=== PATIENT | male | born 2005 | race Caucasian/White ===

== ENCOUNTER 2024-03-21 13:52 | Emergency (ER) | payer OTHER, SELFPAY ==
[2024-03-21] MEDS ORDERED: FAMOTIDINE 20 MG/2 ML VIAL IV ONE (15:49)
[2024-03-21] MEDS ORDERED: ONDANSETRON 4 MG/2 ML VIAL ONE (15:49)
[2024-03-21] MEDS ORDERED: NA CHLORIDE 0.9% 1,000 ML ONE (15:49)
[2024-03-21] MEDS ORDERED: KETOROLAC 30 MG/ML INJ ONE (15:49)
[2024-03-21 16:36] LABS: Absolute Lymphocytes (CBC) 0.4 K/uL (0.7-4.9); Absolute Neutrophil 11.5 K/uL (1.8-8.0); Basophils % 0.1 % (0-1.3); Eosinophils % 0.1 % (0-4.4); Hematocrit 45.1 % (39.6-49.0); Lymphocytes % 3.2 % (15.3-44.8); MCH 29.5 pg (27.0-35.0); MCHC 33.2 g/dL (32.0-36.0); MCV 88.9 fL (80-100); MPV 9.1 fL (7.6-11.3); Monocytes % 8.1 % (3.3-12.3); Neutrophils % 88.5 % (41.7-73.7); Nucleated Red Blood Cells % 0.1 % (0-0); Platelets 238 thou/uL (152-406); RBC Red Blood Cell Count 5.07 M/uL (4.33-5.43); Red Cell Distribution Width 12.6 % (12.1-15.2)
[2024-03-21 16:40] LABS: Specific Gravity > 1.030 (1.005-1.030); Sqamous Epithelial None Seen /HPF (None Seen); Urine Bacteria None Seen /HPF (<20); Urine Bilirubin NEGATIVE (Negative); Urine Blood Trace (Negative); Urine Clarity Clear (Clear); Urine Color Yellow (Yellow); Urine Culture Reflex Order NOT NEEDED; Urine Glucose NEGATIVE (Negative); Urine Ketones NEGATIVE (Negative); Urine Microscopic Reflex YN ORDER UMIC; Urine Mucus Slight /HPF (None Seen); Urine Nitrite NEGATIVE (Negative); Urine Protein TRACE (Negative); Urine Urobilinogen Normal (Normal); Urine WBC <5 /HPF (<5)
[2024-03-21 16:48] LABS: Albumin 3.7 g/dL (3.4-5.0); Anion Gap 10.6 mEq/L (5.0-15.0); Globulin 3.8 g/dL (2.3-3.5); Potassium 3.6 mEq/L (3.5-5.1); Protein, Total 7.5 g/dL (6.4-8.2)
[2024-03-21 16:53] LABS: SARS-CoV-2 Antigen CONTROL BLUE LINE VIS/BG OK; SARS-CoV-2 Antigen Rapid Res Negative (Negative)
[2024-03-21 17:46] LABS: Platelet Estimate ADEQ; White Blood Cell Scan OK (OK)
[2024-03-21 17:47] LABS: Blood Morphology Comment NOT SEEN (NOT SEEN)
--- NOTE | 2024-03-21 18:15 | RAD REPORT ---
EXAM DESCRIPTION: CTAbdomen Pelvis W Contrast - 03/21/2024 6:01 pm CLINICAL HISTORY: ABD PAIN COMPARISON: No comparisons TECHNIQUE: CT of the abdomen and pelvis was performed. All CT scans are performed using dose optimization technique as appropriate and may include automated exposure control or mA/KV adjustment according to patient size. FINDINGS: Lower chest: No acute abnormality. Liver: No acute abnormality or suspicious lesions. Biliary: No biliary ductal dilatation. Stomach: No significant focal abnormality. Duodenum: No significant focal abnormality. Pancreas: No significant abnormality. Spleen: No significant abnormality. Adrenal: No suspicious lesions. Kidney/ureter: No hydronephrosis. No renal calculi. Retroperitoneum: No retroperitoneal adenopathy. Vascular: No aneurysm. Bowel: No significant focal abnormality. Normal appendix. Peritoneum: No ascites or free air. Bladder: Grossly unremarkable. Reproductive: No adnexal masses. Bones: No acute fracture. Other: n/a IMPRESSION: No acute intra-abdominal or pelvic finding. Normal appendix.
--- NOTE | 2024-03-21 19:16 | EDPHYS ---
Physician Documentation [facility] Name: Octavio Martinez Age: 18 yrs Sex: Male : 2005 Arrival Date: 03/21/2024 Time: 13:52 Bed DIS2 Private MD: ED Physician Aiden Rodriguez HPI: 03/21 15:45 This 18 yrs old Male presents to ER via Ambulatory with complaints of Fever, cp Nausea/Vomiting/Diarrhea. 15:45 The patient reports fever, that was measured at 100.9 degrees Fahrenheit. Onset: The cp symptoms/episode began/occurred yesterday. Associated signs and symptoms: Pertinent positives: abdominal pain, diarrhea, nausea, vomiting, Pertinent negatives: cough. Severity of symptoms: in the emergency department the symptoms are unchanged despite home interventions. Historical: - Allergies: 14:49 No Known Allergies; hb - Home Meds: 14:49 None [Active]; hb - PMHx: 14:49 None; hb - PSHx: 14:49 None; hb - Immunization history:: Adult Immunizations up to date. - Infectious Disease History:: Denies. - Social history:: Smoking status: Reported history of juuling and/or vaping. ROS: 15:50 Constitutional: Positive for body aches, poor PO intake, Negative for fever, cp 15:50 Eyes: Negative for injury, pain, redness, and discharge, cp 15:50 ENT: Negative for drainage from ear(s), ear pain, sore throat, difficulty swallowing, difficulty handling secretions, 15:50 Respiratory: Negative for cough, shortness of breath, wheezing, 15:50 Abdomen/GI: Positive for abdominal pain, nausea, vomiting, and diarrhea, anorexia, Negative for constipation, dysphagia, hematemesis, black/tarry stool, rectal bleeding, 15:50 Back: Negative for pain at rest, pain with movement, 15:50 Neuro: Negative for altered mental status, dizziness, headache, weakness, 15:50 All other systems are negative, Exam: 15:55 Constitutional: The patient appears in no acute distress, alert, awake, cp non-diaphoretic, non-toxic, well developed, well nourished, uncomfortable, 15:55 Head/Face: Normocephalic, atraumatic. cp 15:55 Eyes: Periorbital structures: appear normal, Conjunctiva: normal, no exudate, no injection, Sclera: no appreciated abnormality, Lids and lashes: appear normal, bilaterally, 15:55 ENT: External ear(s): are unremarkable, Nose: is normal, Mouth: Lips: moist, Oral mucosa: pink and intact, moist, Posterior pharynx: is normal, airway is patent, no erythema, no exudate, 15:55 Neck: ROM/movement: is normal, is supple, without pain, no range of motions limitations, 15:55 Chest/axilla: Inspection: normal, 15:55 Cardiovascular: Rate: normal, Rhythm: regular, 15:55 Respiratory: the patient does not display signs of respiratory distress, Respirations: normal, no use of accessory muscles, no retractions, labored breathing, is not present, Breath sounds: are clear throughout, no decreased breath sounds, no stridor, no wheezing, 15:55 Abdomen/GI: Inspection: abdomen appears normal, Bowel sounds: active, all quadrants, Palpation: soft, in all quadrants, moderate abdominal tenderness, in all quadrants, rebound tenderness, is not appreciated, involuntary guarding, is not appreciated, 15:55 Back: pain, is absent, ROM is normal, 15:55 Neuro: Orientation: to person, place \T\ time. Mentation: is normal, Motor: moves all fours, strength is normal, Vital Signs: 14:47 BP 112 / 69; Pulse 76; Resp 18; Temp 99(O); Pulse Ox 100% on R/A; Weight 108.86 kg; rs5 Height 6 ft. 0 in. ; Pain 3/10; 15:01 BP 114 / 74; Pulse 77; Resp 18; Pulse Ox 99% on R/A; rs5 18:54 BP 115 / 71; Pulse 80; Resp 18; Temp 98(O); Pulse Ox 99% on R/A; rs5 14:47 Body Mass Index 32.55 (108.86 kg, 182.88 cm) rs5 14:47 Pain Scale: Adult rs5 MDM: 14:46 Patient medically screened. cp 19:14 Data reviewed: vital signs, nurses notes, lab test result(s), radiologic studies, CT cp scan. 19:14 Differential diagnosis: viral Infection, bacterial infection, bronchitis, pneumonia cp UTI, gastroenteritis. I considered the following discharge prescriptions or medication management in the emergency department Medications were administered in the Emergency Department. See MAR. Counseling: I had a detailed discussion with the patient and/or guardian regarding the historical points, exam findings, and any diagnostic results supporting the discharge/admit diagnosis, lab results, radiology results, to return to the emergency department if symptoms worsen or persist or if there are any questions or concerns that arise at home. Response to treatment: the patient's symptoms have markedly improved after treatment, and as a result, I will discharge patient. Special discussion: Based on the patient's Hx, exam, and Dx evaluation, there is no indication for emergent surgery or inpatient Tx. It is understood by the patient/guardian that if the Sx's persist or worsen they need to return immediately for re-evaluation. 03/21 15:35 Order name: CBC with Diff; Complete Time: 19:05 03/21 17:45 Interpretation: Normal except: WBC 12.90; MONTRELL% 88.5; LYM% 3.2; NEUT A 11.5; LYMA 0.4. 03/21 15:35 Order name: CMP; Complete Time: 17:45 03/21 17:45 Interpretation: Normal except: GLOB 3.8; A/G 1.0. 03/21 15:35 Order name: Lipase; Complete Time: 17:45 03/21 15:35 Order name: Urinalysis w/ reflexes; Complete Time: 17:45 03/21 17:45 Interpretation: Normal except: Urine SG > 1.030; UBLD Trace; UPROT TRACE; URBC 5-10. 03/21 15:35 Order name: SARS RAPID; Complete Time: 17:45 03/21 17:46 Interpretation: Reviewed. 03/21 15:35 Order name: Influenza Screen (a \T\ B); Complete Time: 17:45 03/21 17:46 Interpretation: Reviewed. 03/21 16:43 Order name: CBC Smear Scan; Complete Time: 19:05 EDNE 03/21 17:44 Order name: CT Abd/Pelvis - IV Contrast Only; Complete Time: 19:05 03/21 15:35 Order name: IV Saline Lock; Complete Time: 16:44 03/21 15:35 Order name: Labs collected and sent; Complete Time: 16:44 03/21 19:06 Order name: PO challenge; Complete Time: 19:10 cp Administered Medications: 16:00 Drug: NS 0.9% IV 1000 ml IV at 1 bolus Per protocol; 1000 mL bolus Route: IV; Rate: 1 rs5 bolus; Site: right antecubital; 16:00 Drug: Famotidine IVP 20 mg IVP once; dilute with 10 mL 0.9% NaCl; give over 2 minutes rs5 Route: IVP; Site: right antecubital; 16:00 Drug: TORadol - Ketorolac IVP 15 mg IVP once Route: IVP; Site: right antecubital; rs5 16:00 Drug: Ondansetron IVP 4 mg IVP once; over 2 minutes Route: IVP; Site: right antecubital;rs5 Disposition Summary: 03/21/24 19:15 Discharge Ordered Notes: Location: Home cp Problem: new cp Symptoms: have improved cp Condition: Stable cp Diagnosis - Nausea with vomiting, unspecified cp - Diarrhea, unspecified cp Followup: cp - With: Private Physician - When: 2 - 3 days - Reason: Worsening of condition Discharge Instructions: - Discharge Summary Sheet cp - Food Choices to Help Relieve Diarrhea, Adult cp - Diarrhea, Adult cp - Nausea and Vomiting, Adult cp Forms: - Medication Reconciliation Form cp - Antibiotic Education cp - Prescription Opioid Use cp - Patient Portal Instructions cp - Leadership Thank You Letter cp - Work release form mb9 Prescriptions: - Zofran 4 mg Oral Tablet - take 1 tablet ORAL route every 12 hours As needed; 20 tablet; Refills: 0, cp Product Selection Permitted - dicyclomine 20 mg Oral tablet - take 1 tablet ORAL route 4 times per day; 30 tablet; Refills: 0, Product cp Selection Permitted Signatures: Dispatcher [employer] EDMS Aiden Roland PA PA cp Valentina Allan RN RN Ruslan Avila RN RN rs5 Corrections: (The following items were deleted from the chart) 15:35 15:35 CBC+H.LAB.BRZ ordered. EDMS EDMS 15:35 15:35 COMPREHENSIVE METABOLIC PANEL+C.LAB.BRZ ordered. EDMS EDMS 15:35 15:35 LIPASE+C.LAB.BRZ ordered. EDMS EDMS 15:35 15:35 Urinalysis+U.LAB.BRZ ordered. EDMS EDMS 15:35 15:35 SARS-COV-2 Antigen Rapid+I.LAB.BRZ ordered. EDMS EDMS 15:35 15:35 Influenza Screen (A \T\ B)+BA.LAB.BRZ ordered. EDMS EDMS 17:45 17:45 Abdomen Pelvis W Con+CT.RAD.BRZ ordered. EDMS EDMS
--- NOTE | 2024-03-21 19:16 | ER ---
Nurse's Notes [facility] Name: Octavio Martinez Age: 18 yrs Sex: Male : 2005 Arrival Date: 03/21/2024 Time: 13:52 Bed DIS2 Private MD: Diagnosis: Nausea with vomiting, unspecified;Diarrhea, unspecified Presentation: 03/21 14:47 Chief complaint: N/V/D, fever, and chills since yesterday. Not tolerating fluids. TMAX hb 100.9. Coronavirus screen: At this time, the client does not indicate any symptoms associated with coronavirus-19. Ebola Screen: No symptoms or risks identified at this time. Initial Sepsis Screen: Does the patient meet any 2 criteria? HR > 90 bpm. No. Patient's initial sepsis screen is negative. Does the patient have a suspected source of infection? No. Patient's initial sepsis screen is negative. Risk Assessment: Do you want to hurt yourself or someone else? Patient reports no desire to harm self or others. Onset of symptoms was March 20, 2024. 14:47 Method Of Arrival: Ambulatory hb 14:47 Acuity: KIMBERLY 3 hb Triage Assessment: 14:49 General: Appears in no apparent distress. Behavior is calm, cooperative. Pain: Pain hb currently is 3 out of 10 on a pain scale. Neuro: Level of Consciousness is awake, alert, obeys commands, Oriented to person, place, time, situation. Cardiovascular: Patient's skin is warm and dry. Respiratory: Respiratory effort is even, unlabored, Respiratory pattern is regular, symmetrical. GI: Reports cramping, diarrhea, gaseousness, intolerance of fluids, intolerance of food, nausea, vomiting. Historical: - Allergies: 14:49 No Known Allergies; hb - Home Meds: 14:49 None [Active]; hb - PMHx: 14:49 None; hb - PSHx: 14:49 None; hb - Immunization history:: Adult Immunizations up to date. - Infectious Disease History:: Denies. - Social history:: Smoking status: Reported history of juuling and/or vaping. Screenin:46 [facility] ED Fall Risk Assessment (Adult) History of falling in the last 3 months, rs5 including since admission No falls in past 3 months (0 pts) Confusion or Disorientation No (0 pts) Intoxicated or Sedated No (0 pts) Impaired Gait No (0 pts) Mobility Assist Device Used No (0 pt) Altered Elimination No (0 pt) Score/Fall Risk Level 0 - 2 = Low Risk Oriented to surroundings, Maintained a safe environment. Abuse screen: Denies threats or abuse. Nutritional screening: No deficits noted. Tuberculosis screening: No symptoms or risk factors identified. Assessment: 14:46 General: Appears in no apparent distress. uncomfortable, Behavior is calm, cooperative. rs5 Pain: Complains of pain in abdomen, head Pain currently is 7 out of 10 on a pain scale. Quality of pain is described as aching, Is continuous. Neuro: Level of Consciousness is awake, alert, obeys commands, Oriented to person, place, time, situation. Cardiovascular: Patient's skin is warm and dry. Respiratory: Respiratory effort is even, unlabored, Respiratory pattern is regular, symmetrical. GI: Abdomen is round non-distended, Abd is soft and non tender X 4 quads. Reports nausea, vomiting. : No signs and/or symptoms were reported regarding the genitourinary system. EENT: No signs and/or symptoms were reported regarding the EENT system. Derm: Skin is intact, Skin is pink, warm \T\ dry. Musculoskeletal: Range of motion: intact in all extremities. 15:55 Reassessment: Patient and/or family updated on plan of care and expected duration. Pain rs5 level reassessed. Patient is alert, oriented x 3, equal unlabored respirations, skin warm/dry/pink. Patient states feeling better. 17:10 Reassessment: No changes from previously documented assessment. rs5 18:15 Reassessment: Patient and/or family updated on plan of care and expected duration. Pain rs5 level reassessed. Patient is alert, oriented x 3, equal unlabored respirations, skin warm/dry/pink. Patient states feeling better. 18:54 Reassessment: No changes from previously documented assessment. rs5 Vital Signs: 14:47 BP 112 / 69; Pulse 76; Resp 18; Temp 99(O); Pulse Ox 100% on R/A; Weight 108.86 kg; rs5 Height 6 ft. 0 in. ; Pain 3/10; 15:01 BP 114 / 74; Pulse 77; Resp 18; Pulse Ox 99% on R/A; rs5 18:54 BP 115 / 71; Pulse 80; Resp 18; Temp 98(O); Pulse Ox 99% on R/A; rs5 14:47 Body Mass Index 32.55 (108.86 kg, 182.88 cm) rs5 14:47 Pain Scale: Adult rs5 ED Course: 13:58 Patient arrived in ED. ra3 14:11 Aiden Roland PA is PHCP. cp 14:11 Aiden Rodriguez MD is Attending Physician. cp 14:46 Patient has correct armband on for positive identification. Placed in gown. Bed in low rs5 position. Call light in reach. Side rails up X2. 14:46 No provider procedures requiring assistance completed. rs5 14:49 Triage completed. hb 14:49 Arm band placed on. hb 15:43 Ruslan Avila, MYLENE is Primary Nurse. rs5 18:02 CT Abd/Pelvis - IV Contrast Only In Process Unspecified. EDMS 19:16 IV discontinued, intact, bleeding controlled, No redness/swelling at site. Pressure mb9 dressing applied. Administered Medications: 16:00 Drug: NS 0.9% IV 1000 ml IV at 1 bolus Per protocol; 1000 mL bolus Route: IV; Rate: 1 rs5 bolus; Site: right antecubital; 16:00 Drug: Famotidine IVP 20 mg IVP once; dilute with 10 mL 0.9% NaCl; give over 2 minutes rs5 Route: IVP; Site: right antecubital; 16:00 Drug: TORadol - Ketorolac IVP 15 mg IVP once Route: IVP; Site: right antecubital; rs5 16:00 Drug: Ondansetron IVP 4 mg IVP once; over 2 minutes Route: IVP; Site: right antecubital;rs5 Medication: 18:56 VIS not applicable for this client. rs5 Outcome: 19:15 Discharge ordered by . cp 19:20 Discharged to home ambulatory, mbRio 19:20 Condition: stable 19:20 Discharge instructions given to patient, Instructed on discharge instructions, follow up and referral plans. Demonstrated understanding of instructions, follow-up care, medications, Prescriptions given X 2, 19:23 Patient left the ED. mb9 Signatures: Dispatcher [employer] EDDE Aiden Roland PA PA cp Baxter, Heather, MYLENE RN hb Jany Lau RN RN mb9 Ruslan Avila RN RN rs5 Carleen Sims ra3 Corrections: (The following items were deleted from the chart) 18:55 14:47 BP 112 / 69; Pulse 118bpm; Resp 18bpm; Pulse Ox 100% RA; Temp 99F Oral; 108.86 rs5 kg; Height 6 ft.; BMI: 32.5; Pain 3/10, Adult; hb
[2024-03-21 19:54] VITALS: BP 115/71; TEMP 98; O2SAT 99
== END 2024-03-21 19:23 | disposition home or self-care (01) ==
LOC: ER 13:52
DX: R11.2 Nausea with vomiting, unspecified (principal); R19.7 Diarrhea, unspecified; Z11.52 Encounter for screening for COVID-19
CPT/HCPCS: 36415; 74177; 80053; 81001; 83690; 85025; 87804; 87811; 96374; 96375; 99284; J2405; J7030; Q9967